=== PATIENT | female | born 1980 | race Caucasian/White ===

== ENCOUNTER 2017-01-05 09:56 | Emergency (ER) | payer MEDICAID ==
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
== END 2017-01-05 11:06 | disposition home or self-care (01) ==
LOC: ER 09:56
DX: L55.1 Sunburn of second degree (principal); Z79.899 Other long term (current) drug therapy; F17.210 Nicotine dependence, cigarettes, uncomplicated
CPT/HCPCS: 99281